=== PATIENT | male | born 2000 | race American Indian/Alaskan Native ===

== ENCOUNTER 2021-08-18 12:17 | Emergency (ER) | payer OTHER ==
--- NOTE | 2021-08-18 13:15 | XRay Report ---
CHEST PA AND LATERAL VIEWS INDICATION: cough. COMPARISON: None. FINDINGS: Support devices: None. Heart: Within normal limits. Lungs/Pleura: No acute pulmonary or pleural findings. IMPRESSION: 1. No acute findings. Signer Name: Jovon Bowser MD Signed: 08/18/2021 1:10 PM Workstation Name: [id number]
--- NOTE | 2021-08-18 13:25 | Emergency Department Report ---
- General Chief Complaint: Upper Respiratory Infection Stated Complaint: Chest Pain, Cough Time Seen by Provider: 08/18/21 12:45 Source: patient Mode of arrival: Ambulatory Limitations: No Limitations - History of Present Illness Initial Comments: Patient presents to the emergency with complaints of URI symptoms that began 5 days ago. He has associated cough, congestion, headache, body aches, nausea, vomiting. He denies any fever, diarrhea, shortness of breath, abdominal pain. He reports that he received the Larry injection Covid vaccine. He denies any past medical history. No allergies to medications. - Related Data Previous Rx's Medication Instructions Recorded Last Taken Type Benzonatate [Tessalon Perles] 100 mg PO Q8HR PRN #12 capsule 08/18/21 Unknown Rx Butalb/Acetaminophen/Caffeine 1 cap PO Q8HR PRN #12 cap 08/18/21 Unknown Rx [Fioricet 50-300-40 mg CAP] Ondansetron [Zofran Odt] 4 mg PO Q8HR PRN #12 tab.rapdis 08/18/21 Unknown Rx guaiFENesin ER [Mucinex ER] 600 mg PO Q12H #14 tablet.er 08/18/21 Unknown Rx ED Review of Systems ROS: Stated complaint: Chest Pain, Cough Other details as noted in HPI Comment: All other systems reviewed and negative ED Past Medical Hx - Medications Home Medications: Home Medications Medication Instructions Recorded Confirmed Last Taken Type Benzonatate [Tessalon Perles] 100 mg PO Q8HR PRN #12 capsule 08/18/21 Unknown Rx Butalb/Acetaminophen/Caffeine 1 cap PO Q8HR PRN #12 cap 08/18/21 Unknown Rx [Fioricet 50-300-40 mg CAP] Ondansetron [Zofran Odt] 4 mg PO Q8HR PRN #12 tab.rapdis 08/18/21 Unknown Rx guaiFENesin ER [Mucinex ER] 600 mg PO Q12H #14 tablet.er 08/18/21 Unknown Rx ED Physical Exam - General Limitations: No Limitations General appearance: alert, in no apparent distress - Head Head exam: Present: atraumatic, normocephalic - Eye Eye exam: Present: normal appearance - ENT ENT exam: Present: normal orophraynx, mucous membranes moist, TM's normal bilaterally, normal external ear exam - Respiratory Respiratory exam: Present: normal lung sounds bilaterally. Absent: respiratory distress, wheezes, rales, rhonchi, stridor, chest wall tenderness, accessory muscle use, decreased breath sounds, prolonged expiratory - Cardiovascular Cardiovascular Exam: Present: regular rate, normal rhythm, normal heart sounds. Absent: systolic murmur, diastolic murmur, rubs, gallop - Neurological Exam Neurological exam: Present: alert, oriented X3 - Psychiatric Psychiatric exam: Present: normal affect, normal mood - Skin Skin exam: Present: warm, dry, intact ED Course Vital Signs 08/18/21 08/18/21 08/18/21 12:32 13:57 14:57 Temperature 99.1 F 99.2 F Pulse Rate 71 80 68 Respiratory 14 15 15 Rate Blood Pressure 120/69 130/82 122/78 [Right] O2 Sat by Pulse 99 99 97 Oximetry ED Medical Decision Making - Radiology Data Radiology results: report reviewed interpreted by me: Ordering Physician: RITESH SPANN Date of Service: 08/18/21 Procedure(s): XR chest routine 2V Accession Number(s): [id number] cc: RITESH SPANN Fluoro Time In Minutes: CHEST PA AND LATERAL VIEWS INDICATION: cough. COMPARISON: None. FINDINGS: Support devices: None. Heart: Within normal limits. Lungs/Pleura: No acute pulmonary or pleural findings. IMPRESSION: 1. No acute findings. Signer Name: Jovon Bowser MD Signed: 08/18/2021 1:10 PM Workstation Name: [id number] Transcribed By: Dictated By: Jovon Bowser MD Electronically Authenticated By: Jovon Bowser MD Signed Date/Time: 08/18/211309 DD/ 09 TD/TT: - Medical Decision Making Patient presents to the emergency with complaints of URI symptoms that began 5 days ago. He has associated cough, congestion, headache, body aches, nausea, vomiting. He denies any fever, diarrhea, shortness of breath, abdominal pain. He reports that he received the Larry injection Covid vaccine. He denies any past medical history. No allergies to medications. Vitals are normal. Breath sounds are clear bilaterally, no wheezing, no rales, no rhonchi, normal oropharynx, normal TMs and canals. Patient is tolerating p.o. intake without difficulty. Chest x-ray 1. No acute findings. Symptoms likely related to URI. Discussed supportive care and symptomatic treatment with patient and the importance of oral hydration. Discussed return precautions and the importance of primary care follow-up for reexamination. Advised patient Please take medica tion as prescribed. Increase your fluid intake. Follow-up with your primary care doctor. Return to emergency room for any new or worsening symptoms. Recommend outpatient COVID-19 testing and if positive will need to self quarantine for 10 days from onset of symptoms. Critical care attestation.: If time is entered above; I have spent that time in minutes in the direct care of this critically ill patient, excluding procedure time. ED Disposition Clinical Impression: URI (upper respiratory infection) Qualifiers: URI type: unspecified URI Qualified Code(s): J06.9 - Acute upper respiratory infection, unspecified Disposition: HOME / SELF CARE / HOMELESS Is pt being admited?: No Does the pt Need Aspirin: No Condition: Stable Instructions: Viral Respiratory Infection Additional Instructions: Please take medication as prescribed. Increase your fluid intake. Follow-up with your primary care doctor. Return to emergency room for any new or worsening symptoms. Recommend outpatient COVID-19 testing and if positive will need to self quarantine for 10 days from onset of symptoms. Prescriptions: Butalb/Acetaminophen/Caffeine [Fioricet 50-300-40 mg CAP] 1 cap PO Q8HR PRN #12 cap PRN Reason: headache guaiFENesin ER [Mucinex ER] 600 mg PO Q12H #14 tablet.er Benzonatate [Tessalon Perles] 100 mg PO Q8HR PRN #12 capsule PRN Reason: cough Ondansetron [Zofran Odt] 4 mg PO Q8HR PRN #12 tab.rapdis PRN Reason: nausea/vomiting Referrals: SHOLA WEBSTER MD [Staff Physician] - 3-5 Days [facility] [Provider Group] - 3-5 Days Time of Disposition: 13:23 Print Language: LAO
[2021-08-18 14:58] VITALS: BP 122/78
--- NOTE | 2021-08-18 17:54 | Electrocardiograph Report ---
[facility] Test Date: 2021-08-18 Test Time: 12:18:32 Pat Name: ALESSIA MARCANO Department: Room: Gender: M [employer] Agent: [employer] : [id number] Requested By: JAYE LOGAN Order Number: [id number] Reading MD: Jak Fonseca Measurements Intervals [place] Rate: 72 P: 19 IA: 154 QRS: 28 QRSD: 94 T: 34 QT: 346 QTc: 379 Interpretive Statements Sinus rhythm No previous ECG available for comparison Electronically Signed On 08-18-2021 17:53:58 EST by Jak Fonseca
== END 2021-08-18 14:57 | disposition home or self-care (01) ==
LOC: ED 12:17
DX: J06.9 Acute upper respiratory infection, unspecified (principal)
CPT/HCPCS: 71046; 93005; 99283